=== PATIENT | female | born 1995 | race Caucasian/White ===

== ENCOUNTER 2017-05-08 12:55 | Emergency (ER) | payer MEDICAID ==
[~2017-05-08 12:55] MED LIST: CRAN500C2; IBUP600 PO; PERI8.6T PO; PRENCAP6 PO
[2017-05-08 13:37] VITALS: BP 106/61; PULSE 101; RESP 20; TEMP 98.8
[2017-05-08 14:24] LABS: BLOOD, URINE NEG (NEG); COMMENT (UR) CULT NOT INDICATED; CULTURE IF INDICATED CULT NOT INDICATED; GLUCOSE,URINE NEG (NEG); KETONE, URINE NEG (NEG); MUCUS URINE FEW /lpf (OCC); NITRITE,URINE NEG (NEG); PH, URINE 6.5 (5.0-8.5); SQUAMOUS EPITHELIAL CELL URINE 1 /hpf (0-5); URINE COLOR YELLOW (YELLW/STRAW)
--- NOTE | 2017-05-08 14:49 | PD ---
HPI Chief Complaint vaginal discharge Date Seen: May 08, 2017 Travel History International Travel<30 Days: No Contact w/Intl Traveler<30Days: No Known Affected Area: No History of Present Illness HPI This is a 19y/o at 29w4d who presents for evaluation of vaginal discharge. She states the discharge is "snot like" no vaginal itching or bleeding. No contractions, + movements. care with Dr. Galicia, no records available for review. Para: 1 : 2 History Past Medical History Narrative Medical Rheumatoid arthritis Left ear deafness Scoliosis Obstetric History Obstetric History 05/19/2015 FT Girl, Cybil Past Surgical History Narrative Surgical Right ear surgery Family History Family History: Negative Social History Alcohol Use: No Tobacco Use: No Substance Abuse: No Allergies-Medications (Allergen,Severity, Reaction): Coded Allergies: No Known Allergies (Verified , 05/18/15) Home Meds Active Scripts Ibuprofen (Motrin 600 Mg Tab)600 Mg Oom722 Mg PO Q6H PRN ( CRAMPING) # 20 TAB Prov:Lucy Galicia MD 05/19/15 Sennosides-Docusate Sodium (Shavonne-Colace 8.6-50 mg)1 Tab Tab2 Tab PO Q12H PRN ( CONSTIPATION) #14 TAB Prov:Lucy Galicia MD 05/19/15 Reported Medications Cranberry (Vaccinium Macrocarp (Cranberry)500 Mg Cap 05/18/15 Mv & Min W/Fe Fumarat ( 1) Cap1 Cap PO DAILY 03/31/15 Physical Exam Vital Signs Date Time Temp Pulse Resp B/P Pulse Ox O2 Delivery O2 Flow Rate FiO2 05/08/17 13:37 98.8 20 05/08/17 13:37 101 106/61 Narrative GENERAL: Well-nourished, well-developed patient. SKIN: Warm and dry. HEAD: Normocephalic and atraumatic. EYES: No scleral icterus. No injection or drainage. ENT: No nasal drainage noted. Mucous membranes pink. Airway patent. NECK: Supple, trachea midline. No JVD. CARDIOVASCULAR: Regular rate and rhythm without murmurs, gallops, or rubs. RESPIRATORY: Breath sounds equal bilaterally. No accessory muscle use. BREASTS: Bilateral exam showed no masses , no retractions, no nipple discharge. ABDOMEN/GI: Abdomen soft, non-tender, bowel sounds present, no rebound, no guarding Gravid to 30 weeks size GENITOURINARY: External Genitalia: intact and normal in appearance VE: c/thick/posterior Uterine Contractions: None FHT's: Category: appropriate for gestational age EXTREMITIES: No cyanosis or edema. BACK: Nontender without obvious deformity. No CVA tenderness. NEUROLOGICAL: Awake and alert. Motor and sensory grossly within normal limits. Five out of 5 muscle strength in all muscle groups. Normal speech. Data Data Orders Vital Signs (Adult) .ON ADMISSION (05/08/17 13:33) ^ Labor Status (05/08/17 13:33) Urinalysis - C+S If Indicated (05/08/17 13:33) ^ Non Stress Test (05/08/17 13:33) Wet Prep Profile (05/08/17 13:33) Labs Laboratory Tests Test 05/08/17 13:30 Urine Color YELLOW Urine Turbidity CLEAR Urine pH 6.5 Urine Specific Mason 1.009 Urine Protein NEG Urine Glucose (UA) NEG Urine Ketones NEG Urine Occult Blood NEG Urine Nitrite NEG Urine Bilirubin NEG Urine Urobilinogen LESS THAN 2.0 Urine Leukocyte Esterase TRACE Urine RBC LESS THAN 1 Urine WBC 1 Urine Squamous Epithelial 1 Cells Urine Mucus FEW Microscopic Urinalysis Comment CULT NOT INDICATED Clue Cells (Wet Prep) NONE SEEN Vaginal Trichomonas (Wet Prep) NONE SEEN Vaginal Yeast (Wet Prep) NONE SEEN MDM Narrative Course / MDM 19y/o at 29w4d with vaginal discharge. -wet prep negative -reassuring status -no evidence of PTL Plan -d/c home -f/u for routine care Diagnosis Diagnosis: Primary Impression: Vaginal discharge during in third trimester Disposition: DISCHARGE HOME Monica Suarez MD May 08, 2017 14:48
== END 2017-05-08 14:51 | disposition home or self-care (01) ==
LOC: HOBED 12:55
DX: O26.93 Pregnancy related conditions, unspecified, third trimester (principal); N89.8 Other specified noninflammatory disorders of vagina; M06.9 Rheumatoid arthritis, unspecified; M41.9 Scoliosis, unspecified; H91.92 Unspecified hearing loss, left ear; Z3A.29 29 weeks gestation of pregnancy; Z79.899 Other long term (current) drug therapy
CPT/HCPCS: 59025; 81001; 87210

== ENCOUNTER 2017-07-02 01:14 | Inpatient (IN) | payer MEDICAID ==
[2017-07-02] VITALS (40 sets, daily range): BP systolic 101–134; BP diastolic 46–91; PULSE 62–116; RESP 16–18; TEMP 97.8–98.3
[~2017-07-02] VITALS: Ht 162.6 cm; Wt 72.6 kg
[2017-07-02] MEDS ORDERED: LACTATED RINGER'S 1000 ML INJ 1,000 ML IV PRN (01:54)
[2017-07-02] MEDS ORDERED: LACTATED RINGER'S 1000 ML INJ 1,000 ML IV SCH (01:54)
--- NOTE | 2017-07-02 01:54 | HHI.HP ---
HPI Chief Complaint Contraction pain leaking fluid Date Seen: Jul 02, 2017 Travel History International Travel<30 Days: No Contact w/Intl Traveler<30Days: No Known Affected Area: No History of Present Illness HPI Patient is 22-year-old white female [address] Galicia for care presents planning of contraction pain leakage of fluid and spotting pink, no daina blood. heart rate tracing is reactive she is khanh every other minutes Para: 1 : 2 History Obstetric History Obstetric History One vaginal delivery Social History Alcohol Use: No Tobacco Use: No Substance Abuse: No Allergies-Medications (Allergen,Severity, Reaction): Coded Allergies: No Known Allergies (Verified , 05/18/15) Home Meds Reported Medications Mv & Min W/Fe Fumarat ( 1) Cap1 Cap PO DAILY 03/31/15 Discontinued Reported Medications Cranberry (Vaccinium Macrocarp (Cranberry)500 Mg Cap 05/18/15 Discontinued Scripts Ibuprofen (Motrin 600 Mg Tab)600 Mg Qrb378 Mg PO Q6H PRN ( CRAMPING) # 20 TAB Prov:Lucy Galicia MD 05/19/15 Sennosides-Docusate Sodium (Shavonne-Colace 8.6-50 mg)1 Tab Tab2 Tab PO Q12H PRN ( CONSTIPATION) #14 TAB Prov:Lucy Galicia MD 05/19/15 Review of Systems General / Constitutional: No: Fever, Weight Gain, Chills, Other Eyes: No: Diploplia, Blurred Vision, Visual changes, Pain, Photophobia HENT: No: Headaches, Vertigo, Lightheadedness Cardiovascular: No: Irregular Rhythm, Chest Pain or Discomfort, Palpitations, Tachycardia, Syncope, Varicosities, Edema, Cyanosis Respiratory: No: Cough, Short of Breath, Other Gastrointestinal: Abdominal Pain, No: Nausea, Vomiting, Diarrhea Genitourinary: No: Decreased Urinary Output, Oliguria Musculoskeletal: No: Limited ROM, Weakness, Cramping, Edema, Pain Skin: No Rash, No Itching, No Dryness, No Lumps, No Change in Pigmentation, No Change in Nails, No Alopecia, No Lesions Neurologic: No: Weakness, Dizziness, Syncope, Focal Abnormalities, Coordination Problem, Headache, Slurred Speech, Seizures Psychiatric: No: Depression, Suicidal Ideations, Homicidal Ideation Endocrine: No: Heat Intolerance, Cold Intolerance, Polydipsia, Polyuria, Other Physical Exam Narrative GENERAL: Well-nourished, well-developed patient. SKIN: Warm and dry. HEAD: Normocephalic and atraumatic. EYES: No scleral icterus. No injection or drainage. ENT: No nasal drainage noted. Mucous membranes pink. Airway patent. NECK: Supple, trachea midline. No JVD. CARDIOVASCULAR: Regular rate and rhythm without murmurs, gallops, or rubs. RESPIRATORY: Breath sounds equal bilaterally. No accessory muscle use. BREASTS: Bilateral exam showed no masses , no retractions, no nipple discharge. ABDOMEN/GI: Abdomen soft, non-tender, bowel sounds present, no rebound, no guarding Gravid to [-37] weeks size Fundal Height: [37-] GENITOURINARY: External Genitalia: intact and normal in appearance BUS glands: [-] Cervix: [-] Dilatation: [6-] Effacement: [-90] Station: [-1] Presentation: [-vtx] Membranes: ruptured]amnisure ++ Uterine Contractions: [-q 2 min] FHT's: Category: [1-] Baseline: [-133] Reactive: [yes-] Variability: [mod-] Decels: [-none] EXTREMITIES: No cyanosis or edema. BACK: Nontender without obvious deformity. No CVA tenderness. NEUROLOGICAL: Awake and alert. Motor and sensory grossly within normal limits. Five out of 5 muscle strength in all muscle groups. Normal speech. Data Data Labs amnisure + Assessment/Plan Assessment and Plan Patient is 22-year-old white female at 37 weeks presents clinically contractions and spotting and leakage of some fluid. Her amnio sure is positive. She is khanh every 2 minutes. Her cervix is 6 cm 90% and -1 vertex therefore the patient's in active labor. She sees the doctor vivian Christopher and will notify Dr. Slater is covering the night of her arrival Impression--37 weeks with the [facility] active labor Plan-admit for labor management augmentation when necessary anticipate vaginal delivery. Patient's GBS was done in the office but is unknown at this time we don't have any of her records this time so we'll leave it up to her attending DrMakayla was to treat with penicillin Rolando Monique II, MD Jul 02, 2017 01:54
[2017-07-02] MEDS ORDERED: MINERAL OIL 10 ML VIAL TOPICAL PRN (02:00)
[2017-07-02] MEDS ORDERED: OXYTOCIN 30 UNITS-500ML PREMIX 500 ML IV ONE (02:00)
[2017-07-02] MEDS ORDERED: CITRIC ACID-SODIUM CITRATE LIQ 30 ML UDC PO SCH (02:00)
[2017-07-02] MEDS ORDERED: LIDOCAINE HCL 1% 50 ML VIAL INFIL PRN (02:00)
[2017-07-02] MEDS ORDERED: SODIUM CHLORID 0.9% 500 ML INJ 500 ML IV PRN (02:00)
[2017-07-02] MEDS ORDERED: LIDOCAINE HCL 1% 50 ML VIAL I-DERMAL PRN (02:00)
[2017-07-02] MEDS ORDERED: SODIUM CHLOR 0.9% 1000 ML INJ 1,000 ML IV PRN (02:14)
[2017-07-02 02:19] LABS: AUTOMATED NEUTROPHIL # 8.4 TH/MM3 (1.8-7.7); BASOPHIL % 0.4 % (0.0-2.0); EOSINOPHIL # 0.1 TH/MM3 (0-0.4); EOSINOPHIL % 0.5 % (0.0-4.0); HEMATOCRIT 36.1 % (35.0-46.0); HEMO FLAGS DIFF FINAL; LYMPH % 17.6 % (9.0-44.0); MEAN CELL VOLUME 92.6 FL (80.0-100.0); MEAN CORPUSCULAR HEMOGLOBIN 29.8 PG (27.0-34.0); MEAN CORPUSCULAR HGB CONC 32.2 % (32.0-36.0); MONO % 6.8 % (0.0-8.0); NEUT % 74.7 % (16.0-70.0); PLATELET COUNT 200 TH/MM3 (150-450); RED CELL DISTRIBUTION WIDTH 13.9 % (11.6-17.2); WHITE BLOOD COUNT 11.3 TH/MM3 (4.0-11.0)
[2017-07-02] MEDS ORDERED: ePHEDrine/NS 25 MG/5 ML SYR ONE (02:31)
[2017-07-02] MEDS ORDERED: fentaNYL 2MCG-BUPIV 0.125% INJ 100 ML ONE (02:31)
[2017-07-02 02:33] LABS: BLOOD, URINE NEG (NEG); GLUCOSE,URINE NEG (NEG); KETONE, URINE NEG (NEG); MUCUS URINE FEW /lpf (OCC); NITRITE,URINE NEG (NEG); PH, URINE 7.5 (5.0-8.5); RENAL EPITHELIAL CELLS <1 /hpf; SQUAMOUS EPITHELIAL CELL URINE 1 /hpf (0-5); URINE COLOR LIGHT-YELLOW (YELLW/STRAW)
[2017-07-02 02:34] LABS: COMMENT (UR) CULT NOT INDICATED; CULTURE IF INDICATED CULT NOT INDICATED
[2017-07-02] MEDS ORDERED: PENICILLIN G POTASSIUM INJ 5,000,000 UNITS in SODIUM CHLORIDE 0.9% INJ 100 ML IV ONE (02:45)
--- NOTE | 2017-07-02 04:05 | PD.OB.DELI ---
Anesthesia: Epidural Episiotomy: None Vaginal Delivery: Normal Presentation: Occiput anterior Nuchal Cord: None Delayed cord clamping (45 sec): Yes Infant: Male One Minute : 8 Five Minute : 9 Weight: 7/12 Placenta: Spontaneous delivery, Intact, 3 vessel cord Laceration: Vaginal laceration, 1 deg Repair: Vicryl interrupted Estimated blood loss: <200 cc Dwaine Slater MD Jul 02, 2017 04:05
[2017-07-02] MEDS ORDERED: DOCUSATE SODIUM 50 MG/SENNA 8.6 MG TAB PO PRN (04:15)
[2017-07-02] MEDS ORDERED: OXYTOCIN 30 UNITS-500ML PREMIX 500 ML IV SCH (04:15)
[2017-07-02] MEDS ORDERED: SODIUM CHLORIDE 0.9% FLUSH 10 ML FLUSH IV FLUSH PRN (04:15)
[2017-07-02] MEDS ORDERED: ZOLPIDEM TARTRATE 5 MG TAB PO PRN (04:15)
[2017-07-02] MEDS ORDERED: OXYTOCIN 10 UNIT/ML AMP XX PRN (04:15)
[2017-07-02] MEDS ORDERED: BENZOCAINE 20% TOPICAL SPRAY 60 ML CAN TOPICAL PRN (04:15)
[2017-07-02] MEDS ORDERED: ONDANSETRON ODT 4 MG TAB PO PRN (04:15)
[2017-07-02] MEDS ORDERED: ACETAMINOPHEN 325 MG TAB PO PRN (04:15)
[2017-07-02] MEDS ORDERED: WITCH HAZEL 50%/GLYCERIN 12.5% 40 PAD JAR TOPICAL PRN (04:15)
[2017-07-02] MEDS ORDERED: ALUMINUM/MAGNESIUM/SIMETH 30 ML CUP PO PRN (04:15)
[2017-07-02] MEDS ORDERED: PENICILLIN G POTASSIUM INJ 2,500,000 UNITS in SODIUM CHLORIDE 0.9% INJ 100 ML IV SCH (07:00)
[2017-07-02] MEDS ORDERED: SODIUM CHLORIDE 0.9% FLUSH 10 ML FLUSH IV FLUSH SCH (09:00)
[2017-07-02] MEDS: IBUPROFEN 600 MG TAB PO PRN ×2 (11:08→17:12)
[2017-07-02] MEDS ORDERED: MEASLES, MUMPS, RUBELLA VACCINE 0.5 ML VIAL SQ ONE (16:00)
[2017-07-02] MEDS ORDERED: DIPHTH/TETANUS/ACEL PERTUSSIS (BOOSTER) 0.5 ML VIAL/PFS IM ONE (16:00)
[2017-07-03] MEDS: IBUPROFEN 600 MG TAB PO PRN ×2 (00:48→07:30)
[2017-07-03 08:30] VITALS: BP 110/78; PULSE 80; RESP 18; TEMP 98.4
[2017-07-03] MEDS ORDERED: SENN1TAB PO (09:04)
[2017-07-03] MEDS ORDERED: IBUP-232 PO (09:04)
--- NOTE | 2017-07-03 09:04 | HHI.OB ---
Subjective Post Day: 1 Remarks s/p FT early AM hours 07/02/17 Objective Vitals/I&O Vital Signs Date Time Temp Pulse Resp B/P Pulse Ox O2 Delivery O2 Flow Rate FiO2 07/02/17 19:29 98.3 62 16 115/70 Objective Remarks GENERAL: Well-nourished, well-developed patient. CARDIOVASCULAR: Regular rate and rhythm without murmurs, gallops, or rubs. RESPIRATORY: Breath sounds equal bilaterally. No accessory muscle use. ABDOMEN/GI: Abdomen soft, non-tender. Fundus: Firm, non-tender at umbilicus. GENITOURINARY: Light bleeding. EXTREMITIES: No cyanosis or edema, non-tender, without signs of DVT. Medications and IVs Current Medications Medications (Trade) Dose Ordered Sig/Eran Route Start Time Stop Time Status Last Admin (NS Flush) 2 ml BID IV FLUSH 07/02/17 09:00 (NS Flush) 2 ml UNSCH PRN IV FLUSH 07/02/17 04:15 (Tylenol) 650 mg Q4H PRN PO 07/02/17 04:15 (Motrin) 600 mg Q6H PRN PO 07/02/17 04:15 07/03/17 07:30 (Americaine 20% Top Spr) 1 spray Q4H PRN TOPICAL 07/02/17 04:15 07/02/17 11:08 (Tucks Pads) 1 applic QID PRN TOPICAL 07/02/17 04:15 07/02/17 11:08 (Shavonne-Colace) 2 tab Q12H PRN PO 07/02/17 04:15 (Ambien) 5 mg HS PRN PO 07/02/17 04:15 (Mag-Al Plus Susp Liq) 15 ml Q8H PRN PO 07/02/17 04:15 (Zofran Odt) 4 mg Q6H PRN PO 07/02/17 04:15 Assessment/Plan Problem List: (1) (normal spontaneous vaginal delivery) Assessment and Plan PPD#1 routine care bottle feeding s/p circ by me this AM ok to d/c to home today Discharge Planning routine Lucy Galicia MD Jul 03, 2017 09:04
--- NOTE | 2017-07-03 09:05 | HHI.DCPOC ---
Discharge Care Plan Diagnosis: (1) (normal spontaneous vaginal delivery) Your Health Problems Are: Vaginal delivery Report Symptoms to Your Doctor -Temperature above 100.5 degrees -Redness, of incision or excessive or foul smelling drainage -Unusual pain or calf pain -Increased vaginal bleeding -Painful or difficulty urinating -Feelings of extreme sadness or anxiety after 2 weeks Goals to Promote Your Health * To prevent worsening of your condition and complications * To maintain your health at the optimal level Directions to Meet Your Goals Take your medications as prescribed Follow your dietary instruction Follow activity as directed Ensure plenty of rest for recovery Drink fluids for hydration Keep your appointments as scheduled Take your immunizations and boosters as scheduled If your symptoms worsen call your PCP, if no PCP go to Urgent Care Center or Emergency Room Smoking is Dangerous to Your Health. Avoid second hand smoke Call the 24-hour crisis hotline for domestic abuse at Lucy Galicia MD Jul 03, 2017 09:05
== END 2017-07-03 12:01 | disposition home or self-care (01) | DRG 775 ==
LOC: HOBED 01:14 → H2EB 01:52 → H1EA 07:48
PROVIDERS: ADMIT Obstetrics & Gynecology; ATTEND Obstetrics & Gynecology
PROC: 10E0XZZ Delivery of Products of Conception, External Approach (ICD-10-PCS; principal; 2017-07-02)
PROC: 0HQ9XZZ Repair Perineum Skin, External Approach (ICD-10-PCS; 2017-07-02)
PROC: 3E0S3CZ (ICD-10-PCS; 2017-07-02)
PROC: 00HU33Z Insertion of Infusion Device into Spinal Canal, Percutaneous Approach (ICD-10-PCS; 2017-07-02)
DX: O70.0 First degree perineal laceration during delivery (principal); Z37.0 Single live birth; Z3A.37 37 weeks gestation of pregnancy
CPT/HCPCS: 81001; 84112; 85025; 86900; 86901; 90715